=== PATIENT | male | born 1970 | race Caucasian/White ===

== ENCOUNTER 2023-10-16 17:53 | Emergency (ER) | payer OTHER ==
--- NOTE | 2023-10-16 18:37 | ED Physician Documentation ---
PD HPI LOWER EXT INJURY - Stated complaint Stated Complaint: R FOOT PX - Chief complaint Chief Complaint: Ext Problem - History obtained from History obtained from: Patient - History of Present Illness PD HPI LOW EXT INJURY LOCATION: Right, Toe (base of great toe medial MTP has had marked pain and tenderness for the past 6 days, not improved despite Ibuprofen, heat/cold, and less walking.) Type of injury: No: Blunt / blow Timing - details: Gradual onset, Still present Worsened by: Moving, Palpating Associated symptoms: Swelling, Discolored (redness local to MTP great toe and has not expanded the 6 days.). No: Weakness, Numbness Similar symptoms before: Has not had sx before PD PAST MEDICAL HISTORY - Past Medical History Past Medical History: No - Past Surgical History Past Surgical History: No - Present Medications Home Medications: Ambulatory Orders Medication Instructions Recorded Confirmed Colchicine 0.6 mg PO QID PRN #12 tablet 10/16/23 10/17/23 Diclofenac Sodium 1% Gel [Voltaren 2 gm TOP QID #50 gm 10/16/23 10/17/23 Gel] Lidocaine Patch 5% [Lidoderm Patch] 1 patch TOP DAILY PRN #10 patch 10/16/23 10/17/23 Oxycodone HCl/Acetaminophen 1 each PO Q6H PRN #14 tablet 10/16/23 10/17/23 [Percocet 5-325 mg Tablet] dexAMETHasone [Decadron] 4 mg PO DAILY #5 tablet 10/16/23 10/17/23 Omeprazole 20 mg PO DAILY 10/17/23 10/17/23 - Allergies Allergies/Adverse Reactions: Allergies Allergy/AdvReac Type Severity Reaction Status Date / Time No Known Drug Allergies Allergy Verified 10/17/23 20:00 - Social History Does the pt smoke?: No Smoking Status: Never smoker Does the pt have substance abuse?: No - Immunizations Immunizations are current?: Yes - POLST Patient has POLST: No PD ED PE NORMAL - Vitals Vital signs reviewed: Yes - General General: Alert and oriented X 3, Well developed/nourished, Other (very uncomfortable in pain related to just the MTP of the toe. No other pains. ) - Derm Derm: Normal color, Warm and dry - Extremities Extremities: Other (local redness and swelling rounded at medial 5th MT head. No redness further around the area. No skin sores. Exquisitely tender to touch and move. ) - Neuro Neuro: No motor deficit, No sensory deficit Results - Vitals Vitals: Oxygen O2 Source Room air PD Medical Decision Making - ED course Complexity details: considered differential (the location and degree of pain, along with exam, is very c/w gout. Has not had it before. States mild alcohol only along with hamburgers and hot dog the day prior to it starting (October 08, as started symptoms ). Had walked around fair amount. No noted acute injury. No skin lesions. ), d/w patient ED course: talked with pt and spouse that it does not seem infectious, which would be main diagnosis that would be alternative treatment. Otherwise gout, tedonitids, etc would be similar treatments. He has been taking Ibuprofen regularly iwthout change in symptoms, in fact worse today. So can change anti-inflammatory approach to steroids and colchicine, along with pain meds, doclofenac local and lido patches. Departure - Departure Disposition: Home, Self Care Clinical Impression: Great toe pain, Acute gout Condition: Stable Record reviewed to determine appropriate education?: Yes Instructions: ED Arthritis Gout Prescriptions: Colchicine 0.6 mg PO QID PRN #12 tablet PRN Reason: Pain 1-4 dexAMETHasone [Decadron] 4 mg PO DAILY #5 tablet Lidocaine Patch 5% [Lidoderm Patch] 1 patch TOP DAILY PRN #10 patch PRN Reason: pain Oxycodone HCl/Acetaminophen [Percocet 5-325 mg Tablet] 1 each PO Q6H PRN #14 tablet PRN Reason: pain Diclofenac Sodium 1% Gel [Voltaren Gel] 2 gm TOP QID #50 gm Comments: This looks very much like gout. I would put that is the most likely culprit. It is not unusual to have a "worn off "type episode and does not necessarily indicate a likelihood of frequent recurrences. That said see how you do in the future if you have recurring episodes that are similar then your primary care may want to do some blood test to see if your uric acid level is high and start preventative medicines. Otherwise we tend to treat it for the single episode now with anti- inflammatories and pain medicine. The main distinction would be inflammatory causes such as gout or bursitis or tendinitis versus infectious cause. If you were to develop expanding redness or red streaks, fever, skin sores or etc. then that would change the thought process. You had been doing NSAIDs without much improvement. We can change to steroidal anti-inflammatories combined with colchicine anti-inflammatory as prescribed. In addition you can add acetaminophen/Tylenol if needed for pains or oxycodone if needed for worse pain. The pain of gout is typically quite severe so added pain medicine is reasonable. You can also add local treatments of heat or warm towels or soaks. You can do diclofenac NSAID topically around the area 3 times daily and you may get some improvement in the pain with topical lidocaine patch as an added thought. I sent your prescriptions to [facility] pharmacy in [place]. Recheck if not improving well over the next 2 to 3 days and really resolved by 3 to 5 days at most. Return if worse. My narcotic instructionsI am prescribing a short course of narcotic pain medication for you. These are potentially dangerous and addictive medications that should be used carefully. These medications may constipate you. Take an dqka-vio-aaaytps stool softener such as docusate twice daily with plenty of water while taking these medications. If you go 24 hours without a bowel movement, take ayrj-yhf-kzmoprt MiraLAX, per package instructions. Do not drink or drive while taking these medications. If you received narcotic or sedating medications while in the emergency department do not drive for 24 hours. Store this medication in a safe, secure place and out of reach of children. It is a violation of federal law to give or sell this medication to another person or to use in a manner other than prescribed. The ED will not refill narcotic prescriptions, including prescriptions lost or stolen. You can dispose of unwanted medications at the [facility]'s office or at several pharmacies such as [facility]. Forms: PCP List Discharge Date/Time: 10/16/23 19:34
[2023-10-16 18:38] VITALS: BP 125/87; O2SAT 96
[2023-10-16] MEDS: dexAMETHasone 4 MG TABLET PO STA (19:26)
[2023-10-16] MEDS: COLCHICINE 0.6 MG TABLET PO STA (19:27)
[2023-10-16] MEDS: oxyCODONE 5 MG TABLET PO STA (19:27)
== END 2023-10-16 19:34 | disposition home or self-care (01) ==
LOC: ED 17:53
DX: M10.9 Gout, unspecified (principal)
CPT/HCPCS: 99283; A9270; J8540

== ENCOUNTER 2023-10-17 15:34 | Emergency (ER) | payer OTHER ==
[2023-10-17 16:14] LABS: BASOPHILS % (AUTO) 0.1 %; HCT - HEMATOCRIT 50.4 % (42.0-52.0); HGB - HEMOGLOBIN 17.2 g/dL (14.0-18.0); LYMPHOCYTES % (AUTO) 4.4 %; MEAN CORPUSCULAR HEMOGLOBIN 30.5 pg (27.0-31.0); MEAN CORPUSCULAR HGB CONC 34.1 g/dL (32.0-36.0); MEAN CORPUSCULAR VOLUME 89.4 fL (80.0-94.0); MONOCYTES % (AUTO) 2.5 %; NEUTROPHILS % (AUTO) 92.5 %; PLT - PLATELET COUNT 330 10^3/uL (130-450); RED BLOOD COUNT 5.64 10^6/uL (4.70-6.10); RED CELL DISTRIBUTION WIDTH 11.5 % (12.0-15.0); WHITE BLOOD COUNT 22.9 x10^3/uL (4.8-10.8)
[2023-10-17 16:17] LABS: ABNORMAL LYMPHS % (MANUAL) 0 %
[2023-10-17 16:33] LABS: ALBUMIN 4.9 g/dL (3.2-5.5); ALBUMIN/GLOBULIN RATIO 1.6 (1.0-2.2); BILIRUBIN,TOTAL 0.7 mg/dL (0.2-1.0); CALCIUM 10.6 mg/dL (8.5-10.3); POTASSIUM 4.1 mmol/L (3.5-4.5)
[2023-10-17 16:36] LABS: BAND NEUTROPHILS % (MANUAL) 1 %; LYMPHOCYTES # (MANUAL) 1.1 10^3/uL (1.5-3.5); LYMPHOCYTES % (MANUAL) 2 %; MONOCYTES # (MANUAL) 0.2 10^3/uL (0.0-1.0); NEUTROPHILS # (MANUAL) 21.5 10^3/uL (1.5-6.6); PLATELET ESTIMATE, MANUAL NORMAL (130-450,000) (NORMAL); PLATELET MORPHOLOGY NORMAL APPEARANCE (NORMAL); RBC MORPHOLOGY (MULTIPLE) NORMAL APPEARANCE (NORMAL); REACTIVE LYMPHS % (MANUAL) 3 %
[2023-10-17 16:37] LABS: DIFFERENTIAL COMMENT MANUAL DIFFERENTIAL
[2023-10-17 19:57] LABS: BILIRUBIN,URINE NEGATIVE (NEGATIVE); GLUCOSE, URINE (UA) NEGATIVE (NEGATIVE); KETONES,URINE (UA) TRACE mg/dL (NEGATIVE); LEUKOCYTE ESTERASE, URINE NEGATIVE (NEGATIVE); NITRITE,URINE NEGATIVE (NEGATIVE); OCCULT BLOOD,URINE NEGATIVE (NEGATIVE); PROTEIN,URINE TRACE mg/dL (NEGATIVE); UROBILINOGEN,URINE 0.2 (NORMAL) E.U./dL (NORMAL)
[2023-10-17 20:07] LABS: CLARITY,URINE CLEAR (CLEAR)
--- NOTE | 2023-10-17 20:12 | ED Physician Documentation ---
PD HPI ABD PAIN - Stated complaint Stated Complaint: LOWER BACK PX,SWEATS - Chief complaint Chief Complaint: Abd Pain - History obtained from History obtained from: Patient - Additional information Additional information: Relatively healthy 53-year-old gentleman who is visiting from [place]. Actually saw my partner yesterday for presumptive gout and was placed on steroids, colchicine, and oxycodone. That is much better. But today around 2 PM developed fairly severe right flank pain that is nonradiating and associated with sweats and nausea and feeling like his urine is concentrated. Pain is much better now, just a residual soreness. No history of renal colic. PD PAST MEDICAL HISTORY - Past Surgical History Past Surgical History: No - Present Medications Home Medications: Ambulatory Orders Medication Instructions Recorded Confirmed Colchicine 0.6 mg PO QID PRN #12 tablet 10/16/23 10/17/23 Diclofenac Sodium 1% Gel [Voltaren 2 gm TOP QID #50 gm 10/16/23 10/17/23 Gel] Lidocaine Patch 5% [Lidoderm Patch] 1 patch TOP DAILY PRN #10 patch 10/16/23 10/17/23 Oxycodone HCl/Acetaminophen 1 each PO Q6H PRN #14 tablet 10/16/23 10/17/23 [Percocet 5-325 mg Tablet] dexAMETHasone [Decadron] 4 mg PO DAILY #5 tablet 10/16/23 10/17/23 Omeprazole 20 mg PO DAILY 10/17/23 10/17/23 - Allergies Allergies/Adverse Reactions: Allergies Allergy/AdvReac Type Severity Reaction Status Date / Time No Known Drug Allergies Allergy Verified 10/17/23 20:00 - Social History Does the pt smoke?: No Smoking Status: Never smoker Does the pt have substance abuse?: No - Immunizations Immunizations are current?: Yes - POLST Patient has POLST: No PD ED PE NORMAL - Vitals Vital signs reviewed: Yes - General General: Alert and oriented X 3, No acute distress - Abdomen Abdomen: Normal bowel sounds, Soft, Non tender - Derm Derm: No rash - Neuro Neuro: Alert and oriented X 3 Results - Vitals Vitals: Vital Signs - 24 hr 10/17/23 10/17/23 15:52 20:23 Temperature 36.4 C L Heart Rate 84 85 Respiratory 16 16 Rate Blood Pressure 146/90 H 139/84 H O2 Saturation 100 100 Oxygen O2 Source Room air - Labs Labs: Laboratory Tests 10/17/23 10/17/23 10/17/23 16:10 16:10 16:10 WBC 22.9 H RBC 5.64 Hgb 17.2 Hct 50.4 MCV 89.4 MCH 30.5 MCHC 34.1 RDW 11.5 L Plt Count 330 MPV 10.0 Neut # (Auto) Not Reportable Lymph # (Auto) Not Reportable [place] # (Auto) Not Reportable Eos # (Auto) Not Reportable Baso # (Auto) Not Reportable Absolute Nucleated RBC Not Reportable Total Counted 100 Band Neuts % (Manual) 1 Reactive Lymphs % (Man) 3 Abnorm Lymph % (Manual) 0 Nucleated RBC % Not Reportable Neutrophils # (Manual) 21.5 H Lymphocytes # (Manual) 1.1 L Monocytes # (Manual) 0.2 Eosinophils # (Manual) 0.0 Basophils # (Manual) 0.0 Differential Comment MANUAL DIFFERENTIAL Platelet Estimate NORMAL (130-450,000) Platelet Morphology NORMAL APPEARANCE RBC Morph Micro Appear NORMAL APPEARANCE Sodium 138 Potassium 4.1 Chloride 101 Carbon Dioxide 27 Anion Gap 10.0 BUN 18 Creatinine 1.0 Estimated GFR (MDRD) 78 L Glucose 133 H Calcium 10.6 H Total Bilirubin 0.7 AST 15 ALT 20 Alkaline Phosphatase 59 Total Protein 8.0 Albumin 4.9 Globulin 3.1 Albumin/Globulin Ratio 1.6 Lipase 22 Urine Color DARK YELLOW Urine Clarity CLEAR Urine pH 6.0 Ur Specific [place] 1.020 Urine Protein TRACE Urine Glucose (UA) NEGATIVE Urine Ketones TRACE Urine Occult Blood NEGATIVE Urine Nitrite NEGATIVE Urine Bilirubin NEGATIVE Urine Urobilinogen 0.2 (NORMAL) Ur Leukocyte Esterase NEGATIVE Ur Microscopic Review NOT INDICATED Urine Culture Comments NOT INDICATED PD Medical Decision Making - ED course ED course: He presents with sudden onset right flank pain that sounds very "kidney stone ask." His pain is much better now and declines pain medications. His white count is up on his CBC that was otherwise negative. I attribute this to the steroids he started yesterday for the gout. Otherwise his CMP and urinalysis were unremarkable. Care to Dr. Garcia at [address] imaging for presumed renal colic. Departure - Departure Forms: PCP List
[2023-10-18 00:49] VITALS: BP 134/88; O2SAT 97
--- NOTE | 2023-10-18 01:23 | CT Report ---
PROCEDURE: Abdomen/Pelvis WO INDICATIONS: r flank pain TECHNIQUE: A CT scan of the abdomen and pelvis was performed without the use of intravenous contrast. Images we re recorded and evaluated at appropriate window settings. Reformats: coronal and sagittal. For radiat ion dose reduction, the following was used: automated exposure control, adjustment of mA and/or kV ac cording to patient size. COMPARISON: None. FINDINGS: Image quality: Diagnostic. Lower chest: Unremarkable. Liver: No contour-deforming mass. Multiple hepatic cysts and too small to characterize subcentimeter hypodensities, probable cysts versus hemangiomas. Gallbladder: Contracted without radiopaque stones or wall thickening. Biliary tree: No intrahepatic or extrahepatic dilation, accounting for age. Spleen: No splenomegaly. Pancreas: No pancreatic ductal dilation. Adrenals: No adrenal nodule. Kidneys and ureters: No hydronephrosis. No contour-deforming mass. Stomach, bowel and peritoneum: No gastric or small bowel dilation. No abnormal wall thickening. No pa thologic free fluid. Normal appendix. Lymph nodes: No central or retroperitoneal adenopathy. Vessels: No infrarenal aortic aneurysm. Reproductive organs: Unremarkable. Bladder: Bladder wall thickness is normal, accounting for underdistention. No calcified bladder stone s. Pelvic lymph nodes: No adenopathy by size criteria. Bones: No aggressive osseous abnormality. Other: No significant ventral or inguinal hernia. IMPRESSION: No hydronephrosis or obstructing renal stone. Reviewed by: Erin Bonilla MD, PhD on 10/18/2023 1:22 AM PDT Approved by: Erin Bonilla MD, PhD on 10/18/2023 1:22 AM PDT Station ID: [id number]
--- NOTE | 2023-10-18 03:09 | ED Physician Documentation ---
ED Addendum - Addendum Addendum: 10/18/23 03:04 I received signout/turnover of care on this patient from Dr. Rizo; please see his note for complete H&P. In short, patient was treated and released from this emergency department yesterday for suspected gout and prescribed Decadron and colchicine. He returns to the emergency department today with complaint of sudden onset right flank pain, severe and associate with nausea and diaphoresis, but spontaneously and completely resolving within approximately 30 minutes of onset. At the time of turnover of care, the only test result pending is result of CT of the abdomen and pelvis. There was a considerable delay in receiving the radiologist's interpretation of this study, reason unknown. forklift technician was unable to reach the radiology group component technician but eventually a reading was provided. No findings on the CT that would explain patient's pain. There is no evidence of renal calculus, hydronephrosis, hydroureter. Incidental finding of multiple liver cysts versus angiomas. I also note a large left renal cyst (this is not mentioned in the radiologist's reading). I discussed these results with the patient. He is in NAD. I explained that the cause of his flank pain is not apparent at this time. Certainly, his description would be consistent with renal colic, and it is possible that he had a brief, blocking right ureteral calculus that has since passed. In any event, there is no evidence of an emergent process on tonight's tests. Return precautions were reviewed. I advised patient to follow-up with his primary care provider and, when he does, to mention the abnormalities on CT (liver and kidney lesions).
== END 2023-10-18 01:52 | disposition home or self-care (01) ==
LOC: ED 15:34
DX: R10.9 Unspecified abdominal pain (principal); R11.0 Nausea; N28.1 Cyst of kidney, acquired
CPT/HCPCS: 36415; 80053; 81001; 81003; 83690; 85025; 87086; 99283; 99284